=== PATIENT | male | born 1955 | race Caucasian/White ===

== ENCOUNTER 2023-04-25 19:19 | Inpatient (IN) | payer MEDICARE, BC ==
[~2023-04-25 19:19] MED LIST: Sodium Chloride 0.9% 10 ML Syringe FLUSH PRN
[2023-04-25] MEDS ORDERED: Labetalol 100 MG/20 ML MDV IVPUSH ONE (19:43)
[2023-04-25 19:58] LABS: BASOPHILS ABSOLUTE AUTO 0.02 10^3/uL (0.00-0.10); BASOPHILS PERCENT AUTO 0.2 % (0.0-1.0); EOSINOPHILS ABSOLUTE AUTO 0.15 10^3/uL (0.10-0.30); EOSINOPHILS PERCENT AUTO 1.2 % (1.0-3.0); HEMATOCRIT 47.3 % (40.0-52.0); HEMOGLOBIN 15.3 g/dL (13.0-17.0); IMMATURE GRAN ABSOLUTE AUTO 0.04 10^3/uL (0.00-0.50); IMMATURE GRAN PERCENT AUTO 0.3 % (0.0-5.0); LYMPHOCYTES ABSOLUTE AUTO 0.97 10^3/uL (1.00-4.00); LYMPHOCYTES PERCENT AUTO 7.8 % (20.0-40.0); MEAN CORPUSCULAR HEMOGLOBIN 28.3 pg (27.0-31.0); MEAN CORPUSCULAR HGB CONC 32.3 g/dL (32.0-36.0); MEAN CORPUSCULAR VOLUME 87.4 fL (82.0-92.0); MONOCYTES ABSOLUTE AUTO 1.02 10^3/uL (0.10-0.80); MONOCYTES PERCENT AUTO 8.2 % (2.0-8.0); NEUTROPHILS ABSOLUTE AUTO 10.31 10^3/uL (2.50-7.00); NEUTROPHILS PERCENT AUTO 82.3 % (50.0-70.0); PLATELET COUNT,PLT 368 10^3/uL (150-400); RED BLOOD CELL COUNT 5.41 10^6/uL (4.50-6.00); RED CELL DISTRIBUTION WIDTH 12.6 % (11.5-14.5); WHITE BLOOD CELL COUNT,WBC 12.51 10^3/uL (5.00-10.00)
[2023-04-25] MEDS ORDERED: HYDROmorphone 1 MG/ML Syringe IVPUSH ONE (20:01)
[2023-04-25 20:15] LABS: ALBUMIN 2.74 g/dL (3.40-5.00); ANION GAP 15.2 mmol/L (5-15); BILIRUBIN TOTAL 0.4 mg/dL (0.2-1.0); CALCIUM 8.6 mg/dL (8.7-10.3); CARBON DIOXIDE,CO2 25.9 mmol/L (21.0-32.0); CREATININE 0.9 mg/dL (0.51-1.17); EST CRCL DRUG DOSING (CG) 92.6 mL/min; POTASSIUM,K 4.1 mmol/L (3.5-5.1); PROTEIN TOTAL,TP 7.1 g/dL (6.4-8.2)
[2023-04-25] MEDS ORDERED: Sodium Chloride 0.9% 1,000 ML IV ONE (20:22)
[2023-04-25] MEDS ORDERED: Iopamidol 755 Mg/ML 100 ML Bottle IV ONE (21:04)
[2023-04-25] MEDS ORDERED: Sodium Chloride 0.9% 100 ML IV SCH (21:15)
[2023-04-25] MEDS ORDERED: cefTRIAXone 2 GM Vial IVPUSH ONE (21:55)
[2023-04-25] MEDS ORDERED: Ketorolac 30 MG/ML SDV IVPUSH ONE (22:39)
[2023-04-25] MEDS: Ketorolac 30 MG/ML SDV IVPUSH ONE ×2 (22:46→23:37)
[2023-04-25] MEDS ORDERED: Ondansetron 4 MG/2 ML SDV ONE (23:42)
[2023-04-25] MEDS: Ondansetron 4 MG/2 ML SDV IVPUSH PRN (23:47)
[2023-04-26] MEDS ORDERED: Acetaminophen 325 MG Tab PO PRN (01:31)
[2023-04-26] MEDS ORDERED: Azithromycin 500 MG in Sodium Chloride 0.9% 250 ML IV SCH (02:00)
[2023-04-26] MEDS ORDERED: Sodium Chloride 0.9% 250 ML IV SCH (02:00)
[2023-04-26] MEDS: Ondansetron 4 MG/2 ML SDV IVPUSH PRN (04:39)
[2023-04-26 08:45] LABS: BASOPHILS ABSOLUTE AUTO 0.01 10^3/uL (0.00-0.10); BASOPHILS PERCENT AUTO 0.1 % (0.0-1.0); HEMATOCRIT 47.3 % (40.0-52.0); HEMOGLOBIN 14.7 g/dL (13.0-17.0); IMMATURE GRAN ABSOLUTE AUTO 0.02 10^3/uL (0.00-0.50); IMMATURE GRAN PERCENT AUTO 0.2 % (0.0-5.0); LYMPHOCYTES ABSOLUTE AUTO 0.87 10^3/uL (1.00-4.00); LYMPHOCYTES PERCENT AUTO 9.3 % (20.0-40.0); MEAN CORPUSCULAR HEMOGLOBIN 27.6 pg (27.0-31.0); MEAN CORPUSCULAR HGB CONC 31.1 g/dL (32.0-36.0); MEAN CORPUSCULAR VOLUME 88.9 fL (82.0-92.0); MEAN PLATELET VOLUME 9.1 fL (7.4-10.4); MONOCYTES ABSOLUTE AUTO 0.58 10^3/uL (0.10-0.80); MONOCYTES PERCENT AUTO 6.2 % (2.0-8.0); NEUTROPHILS ABSOLUTE AUTO 7.85 10^3/uL (2.50-7.00); NEUTROPHILS PERCENT AUTO 84.2 % (50.0-70.0); PLATELET COUNT,PLT 327 10^3/uL (150-400); RED BLOOD CELL COUNT 5.32 10^6/uL (4.50-6.00); RED CELL DISTRIBUTION WIDTH 12.9 % (11.5-14.5); WHITE BLOOD CELL COUNT,WBC 9.33 10^3/uL (5.00-10.00)
[2023-04-26 09:00] LABS: CALCIUM 8.3 mg/dL (8.7-10.3); CARBON DIOXIDE,CO2 26.6 mmol/L (21.0-32.0); CREATININE 0.85 mg/dL (0.51-1.17); EST CRCL DRUG DOSING (CG) 98.05 mL/min; MAGNESIUM 1.8 mg/dL (1.8-2.4); POTASSIUM,K 4.6 mmol/L (3.5-5.1)
[2023-04-26] MEDS: Enoxaparin 40 MG/0.4 ML Syringe SUBCUT SCH (09:52)
[2023-04-26] MEDS ORDERED: Sodium Chloride 0.9% 1,000 ML IV SCH (14:15)
[2023-04-26 15:21] LABS: HEMOGLOBIN A1C 5.5 % (4.3-5.7)
[2023-04-26 15:24] LABS: TSH ULTRASENSITIVE 0.844 uIU/mL (0.340-4.820)
[2023-04-26] MEDS ORDERED: cefTRIAXone 2 GM Vial IVPUSH SCH (22:00)
[2023-04-27] MEDS: Enoxaparin 40 MG/0.4 ML Syringe SUBCUT SCH (08:19)
== END 2023-04-27 13:00 | disposition home or self-care (01) | DRG 871 ==
LOC: KA.ED 19:19 → KA.MS 22:18 → UNDOADMIN 22:55
PROVIDERS: ADMIT Internal Medicine; ATTEND Internal Medicine
DX: A41.9 Sepsis, unspecified organism (principal); J18.9 Pneumonia, unspecified organism; I20.0 Unstable angina; I48.91 Unspecified atrial fibrillation; E66.9 Obesity, unspecified; R79.89 Other specified abnormal findings of blood chemistry; F41.9 Anxiety disorder, unspecified; Z79.01 Long term (current) use of anticoagulants; Z87.81 Personal history of (healed) traumatic fracture; Z98.52 Vasectomy status; Z68.32 Body mass index [BMI] 32.0-32.9, adult; Z90.89 Acquired absence of other organs; Z98.890 Other specified postprocedural states; Z87.891 Personal history of nicotine dependence; Z11.52 Encounter for screening for COVID-19
CPT/HCPCS: 36415; 71045; 71275; 80048; 80053; 80061; 83036; 83605; 83690; 83735; 83880; 84443; 84484; 85025; 85379; 87040; 93010; 96361; 96374; 96375; 99284; 99285-25; A9270-GY; J0456; J0696; J1170; J1650; J1885; J2405; J3490; J7030; J7050; Q3014; Q9967; U0002